=== PATIENT | female | born 1970 | race Caucasian/White ===

== ENCOUNTER → 2018-11-09 08:51 | Outpatient (CLI) | payer OTHER, SELFPAY ==
--- NOTE | 2018-11-09 08:55 | DI.MG.S_ITS ---
Patient Name: MARYBEL FOX date: 1970 Sex: F Attending Physician: Estevan Indications: Date: 11/09/2018 09:13 At the request of: JEAN-PAUL OLIVAREZ Procedure: MM screening mammo BI BILATERAL DIGITAL SCREENING MAMMOGRAM 3D/2D WITH CAD: 11/09/2018 CLINICAL: Routine screening. Comparison is made to exams dated: 10/05/2017 mammogram, 05/14/2016 mammogram, and 11/12/2011 mammogram - [facility]. The tissue of both breasts is heterogeneously dense. This may lower the sensitivity of mammography. Current study was also evaluated with a Computer Aided Detection (CAD) system. No significant masses, calcifications, or other findings are seen in either breast. There has been no significant interval change. IMPRESSION: NEGATIVE There is no mammographic evidence of malignancy. A 1 year screening mammogram is recommended. This exam was interpreted at Station ID: [id number]. NOTE: For mammograms, a report in lay terms will be sent to the patient. Approximately 15% of breast malignancies will not be visualized mammographically. In the management of a palpable breast mass, a negative mammogram must not discourage biopsy of a clinically suspicious lesion. Electronically Signed By: Eric abdi/hal:11/09/2018 09:49:06 letter sent: Normal Exam ACR BI-RADS Category 1: Negative 3341F
== END ==
PROVIDERS: PCP Acupuncturist; Visit Provider Acupuncturist
DX: Z12.31 Encounter for screening mammogram for malignant neoplasm of breast (principal)
CPT/HCPCS: 77063; 77067

== ENCOUNTER → 2020-01-04 07:41 | Outpatient (CLI) | payer OTHER, SELFPAY ==
--- NOTE | 2020-01-04 | DI.MG.S_ITS ---
BILATERAL DIGITAL SCREENING MAMMOGRAM 3D/2D WITH CAD: 01/04/2020 CLINICAL: Routine screening. Comparison is made to exams dated: 11/09/2018 mammogram, 10/05/2017 mammogram, and 05/14/2016 mammogram - [facility]. The tissue of both breasts is heterogeneously dense. This may lower the sensitivity of mammography. Current study was also evaluated with a Computer Aided Detection (CAD) system. No significant masses, calcifications, or other findings are seen in either breast. There has been no significant interval change. IMPRESSION: NEGATIVE There is no mammographic evidence of malignancy. A 1 year screening mammogram is recommended. This exam was interpreted at Station ID: [id number]. NOTE: For mammograms, a report in lay terms will be sent to the patient. Approximately 15% of breast malignancies will not be visualized mammographically. In the management of a palpable breast mass, a negative mammogram must not discourage biopsy of a clinically suspicious lesion. Electronically Signed By: Mariya gar/hal:01/04/2020 10:26:23 letter sent: Normal Exam ACR BI-RADS Category 1: Negative 3341F
== END ==
PROVIDERS: PCP Acupuncturist; Referring Provider Acupuncturist; Visit Provider Acupuncturist
DX: Z12.31 Encounter for screening mammogram for malignant neoplasm of breast (principal)
CPT/HCPCS: 77063; 77067

== ENCOUNTER → 2021-01-08 08:17 | Outpatient (CLI) | payer OTHER, SELFPAY ==
--- NOTE | 2021-01-08 | DI.MG.S_ITS ---
BILATERAL DIGITAL SCREENING MAMMOGRAM 3D/2D WITH CAD: 01/08/2021 CLINICAL: Routine Screening. Comparison is made to exams dated: 01/04/2020 mammogram, 11/09/2018 mammogram, and 10/05/2017 mammogram - [facility]. The tissue of both breasts is heterogeneously dense. This may lower the sensitivity of mammography. Current study was also evaluated with a Computer Aided Detection (CAD) system. No significant masses, calcifications, or other findings are seen in either breast. There has been no significant interval change. IMPRESSION: NEGATIVE There is no mammographic evidence of malignancy. A 1 year screening mammogram is recommended. This exam was interpreted at Station ID: [id number]. NOTE: For mammograms, a report in lay terms will be sent to the patient. Approximately 15% of breast malignancies will not be visualized mammographically. In the management of a palpable breast mass, a negative mammogram must not discourage biopsy of a clinically suspicious lesion. Electronically Signed By: Juan pino/hal:01/08/2021 08:55:40 letter sent: Normal Exam ACR BI-RADS Category 1: Negative 3341F
== END ==
PROVIDERS: PCP Acupuncturist; Referring Provider Acupuncturist; Visit Provider Acupuncturist
DX: Z12.31 Encounter for screening mammogram for malignant neoplasm of breast (principal)
CPT/HCPCS: 77063; 77067

== ENCOUNTER → 2022-02-10 11:18 | Outpatient (CLI) | payer OTHER, SELFPAY ==
--- NOTE | 2022-02-10 | DI.MG.S_ITS ---
BILATERAL DIGITAL SCREENING MAMMOGRAM 3D/2D WITH CAD: 02/10/2022 CLINICAL: Routine screening. Comparison is made to exams dated: 01/08/2021 mammogram, 01/04/2020 mammogram, and 11/09/2018 mammogram - [facility]. The tissue of both breasts is heterogeneously dense. This may lower the sensitivity of mammography. Current study was also evaluated with a Computer Aided Detection (CAD) system. No significant masses, calcifications, or other findings are seen in either breast. There has been no significant interval change. IMPRESSION: NEGATIVE There is no mammographic evidence of malignancy. A 1 year screening mammogram is recommended. This exam was interpreted at Station ID: [id number]. NOTE: For mammograms, a report in lay terms will be sent to the patient. Approximately 15% of breast malignancies will not be visualized mammographically. In the management of a palpable breast mass, a negative mammogram must not discourage biopsy of a clinically suspicious lesion. Electronically Signed By: Giovanny parra/hal:02/10/2022 12:07:30 letter sent: Normal Exam ACR BI-RADS Category 1: Negative 3341F
--- NOTE | 2022-02-10 | DI.RAD.S_ITS ---
PROCEDURE: XR CHEST 2V INDICATIONS: COUGH/FAMILY HISTORY OF PULMONARY FIBROSIS TECHNIQUE: 2 views of the chest were acquired. COMPARISON: None. FINDINGS: Surgical changes and devices: None. Lungs and pleura: Lungs are clear. No pleural effusions or pneumothorax. Mediastinum: Mediastinal contours are normal. Heart size is normal. Bones and chest wall: No suspicious bony abnormalities. Soft tissues appear unremarkable. IMPRESSION: No acute cardiopulmonary disease. A high-resolution chest CT is recommended to assess early pulmonary fibrosis if clinically indicated. Dictated by: Micah Coates M.D. on 02/10/2022 at 13:04 Approved by: Micah Coates M.D. on 02/10/2022 at 13:05
== END ==
PROVIDERS: PCP Acupuncturist; Referring Provider Acupuncturist; Visit Provider Acupuncturist
DX: R05.9 Cough, unspecified (principal); Z83.6 Family history of other diseases of the respiratory system; Z12.31 Encounter for screening mammogram for malignant neoplasm of breast
CPT/HCPCS: 71046; 77063; 77067

== ENCOUNTER → 2022-07-13 09:11 | Outpatient (CLI) | payer OTHER, SELFPAY ==
--- NOTE | 2022-07-13 09:13 | DI.US.S_ITS ---
PROCEDURE: US ABDOMEN COMPLETE INDICATIONS: ELEVATED TRANSAMINASE TECHNIQUE: Real-time scanning was performed of the abdominal and retroperitoneal organs, with image documentation. COMPARISON: None. FINDINGS: Liver: Liver is normal in size and homogeneous in echotexture. Gallbladder: Gallbladder is normal in sonographic appearance without gallstones, gallbladder wall thickening, pericholecystic fluid, or abnormal sonographic Houser's. Biliary ducts: Intrahepatic bile ducts are non-dilated. Extrahepatic bile duct caliber measures 4 mm. Normal is 6-7 mm or less in diameter, or 10 mm or less post-cholecystectomy. Pancreas: Visualized portions of the pancreas are sonographically normal. Spleen: Spleen is normal in size and homogeneous in echotexture. Kidneys: Kidneys are normal in size and echotexture. Right kidney measures 10.7 cm long; left kidney measures 11.6 cm long. No hydronephrosis or nephrolithiasis. No solid masses. Aorta: Visualized aorta is normal in caliber at less than 3 cm. Iliacs: Proximal common iliac arteries are normal in caliber at less than 2.5 cm. IVC: Intrahepatic inferior vena cava is patent. Miscellaneous: No free abdominal fluid. IMPRESSION: Normal sonographic evaluation of the abdomen. Dictated by: Eric Hayden M.D. on 07/13/2022 at 10:47 Approved by: Eric Hayden M.D. on 07/13/2022 at 10:48
== END ==
PROVIDERS: PCP Acupuncturist; Referring Provider Acupuncturist; Visit Provider Acupuncturist
DX: R74.01 Elevation of levels of liver transaminase levels (principal)
CPT/HCPCS: 76700

== ENCOUNTER → 2023-03-17 09:46 | Outpatient (CLI) | payer OTHER, SELFPAY ==
--- NOTE | 2023-03-17 | DI.MG.S_ITS ---
BILATERAL DIGITAL SCREENING MAMMOGRAM 3D/2D WITH CAD: 03/17/2023 CLINICAL: Routine screening. Comparison is made to exams dated: 02/10/2022 mammogram, 01/08/2021 mammogram, and 01/04/2020 mammogram - [facility]. Both breasts are heterogeneously dense, which may obscure small masses (category c / 51-75% glandular tissue). Current study was also evaluated with a Computer Aided Detection (CAD) system. No significant masses, calcifications, or other findings are seen in either breast. There has been no significant interval change. IMPRESSION: NEGATIVE There is no mammographic evidence of malignancy. A 1 year screening mammogram is recommended. Based on the Tyrer Cuzick model (a risk assessment model) the patient's lifetime risk is 14.3% and her 10 year risk is 3.4%. According to the ACR, ACS, and NCCN guidelines, an annual breast MRI exam along with mammogram is recommended if the patient's lifetime risk is 20% or greater. This exam was interpreted at Station ID: [id number]. NOTE: For mammograms, a report in lay terms will be sent to the patient. Approximately 15% of breast malignancies will not be visualized mammographically. In the management of a palpable breast mass, a negative mammogram must not discourage biopsy of a clinically suspicious lesion. Electronically Signed By: Dejuan puga/hal:03/17/2023 11:42:07 letter sent: Normal Exam ACR BI-RADS Category 1: Negative 3341F
== END ==
PROVIDERS: PCP Acupuncturist; Referring Provider Acupuncturist; Visit Provider Acupuncturist
DX: Z12.31 Encounter for screening mammogram for malignant neoplasm of breast (principal)
CPT/HCPCS: 77063; 77067

== ENCOUNTER → 2024-04-24 08:27 | Outpatient (CLI) | payer BC, SELFPAY ==
--- NOTE | 2024-04-24 08:29 | DI.MG.S_ITS ---
BILATERAL DIGITAL SCREENING MAMMOGRAM 3D/2D WITH CAD: 04/24/2024 CLINICAL: Routine screening. Comparison is made to exams dated: 03/17/2023 mammogram, 02/10/2022 mammogram, and 01/08/2021 mammogram - [facility]. There are scattered areas of fibroglandular density in both breasts (category b / 25%-50% glandular tissue). Current study was also evaluated with a Computer Aided Detection (CAD) system. No significant masses, calcifications, or other findings are seen in either breast. There has been no significant interval change. IMPRESSION: NEGATIVE There is no mammographic evidence of malignancy. A 1 year screening mammogram is recommended. Based on the Tyrer Cuzick model (a risk assessment model) the patient's lifetime risk is 9.9% and her 10 year risk is 2.6%. According to the ACR, ACS, and NCCN guidelines, an annual breast MRI exam along with mammogram is recommended if the patient's lifetime risk is 20% or greater. This exam was interpreted at Station ID: [id number]. NOTE: For mammograms, a report in lay terms will be sent to the patient. Approximately 15% of breast malignancies will not be visualized mammographically. In the management of a palpable breast mass, a negative mammogram must not discourage biopsy of a clinically suspicious lesion. Electronically Signed By: Mariya gar/hal:04/24/2024 10:15:17 letter sent: Normal Exam ACR BI-RADS Category 1: Negative 3341F
== END ==
PROVIDERS: PCP Acupuncturist; Referring Provider Acupuncturist; Visit Provider Acupuncturist
DX: Z12.31 Encounter for screening mammogram for malignant neoplasm of breast (principal); R92.323 Mammographic fibroglandular density, bilateral breasts
CPT/HCPCS: 77063; 77067

== ENCOUNTER → 2025-06-04 09:07 | Outpatient (CLI) | payer BC, SELFPAY ==
--- NOTE | 2025-06-04 09:09 | DI.MG.S_ITS ---
MM screening mammo BI: 06/04/2025. BI-RADS: 1 CLINICAL: 55-year old female for bilateral screening mammogram. Tyrer-Cuzick lifetime risk of 10.2%. No personal or first-degree family history of breast cancer. PRIOR EXAMS 04/24/2024, 03/17/2023, 02/10/2022, 01/08/2021. MAMMOGRAPHY TECHNIQUE: 2D and 3D (tomosynthesis) digital mammographic views obtained, with additional images as needed for full coverage. Current study was also evaluated with a Computer Aided Detection (CAD) system. DENSITY B. There are scattered areas of fibroglandular density. MAMMOGRAPHY FINDINGS Bilateral: No suspicious mass, asymmetry, microcalcification, or other abnormality seen. IMPRESSION: * No evidence of malignancy. RECOMMENDATIONS Bilateral * Annual screening mammography. OVERALL ASSESSMENT CATEGORY BI-RADS-1: Negative. The [employer] recommends annual screening mammography beginning at age 40 for women with average risk of breast cancer. ELECTRONICALLY SIGNED: Jackelyn Headley M.D. on 06/04/2025 at 05:20:17 PM PT Interpreting Station ID: [id number]
== END ==
LOC: MAMMO 09:08
PROVIDERS: PCP Naturopath; Referring Provider Naturopath; Visit Provider Naturopath
DX: Z12.31 Encounter for screening mammogram for malignant neoplasm of breast (principal)
CPT/HCPCS: 77063; 77067